=== PATIENT | male | born 1970 | race Caucasian/White ===

== ENCOUNTER 2020-12-31 10:46 | Emergency (ER) | payer OTHER ==
[~2020-12-31] VITALS: Ht 172.7 cm; Wt 83.9 kg
[2020-12-31 11:01] VITALS: BP 119/76
[2020-12-31] MEDS ORDERED: CEPHALEXIN500 MG PO (12:28)
== END 2020-12-31 12:33 | disposition home or self-care (01) ==
LOC: ER 10:46
DX: S61.412A Laceration without foreign body of left hand, initial encounter (principal); W45.8XXA Other foreign body or object entering through skin, initial encounter; Y93.89 Activity, other specified; Y92.89 Other specified places as the place of occurrence of the external cause; Y99.8 Other external cause status